=== PATIENT | male | born 1960 | race Caucasian/White ===

== ENCOUNTER 2022-12-18 12:40 | Outpatient (REF) | payer OTHER, SELFPAY ==
[2022-12-18 13:33] VITALS: BMI 36.6
[2022-12-18 13:34] VITALS: BP 142/88; PULSE 52; RESP 16; TEMP 36.2; O2SAT 96
[2022-12-18 16:00] VITALS: BP 171/89; PULSE 58; RESP 16; O2SAT 97
== END 2022-12-18 12:41 | disposition home or self-care (01) ==
LOC: HO.MS 12:40
PROVIDERS: PCP Internal Medicine; Visit Provider Ophthalmology
PROC: (CPT 67700; principal; 2022-12-18 18:10)
DX: H00.14 Chalazion left upper eyelid (principal); I10 Essential (primary) hypertension
CPT/HCPCS: 67700